=== PATIENT | male | born 1960 | race African-American/Black ===

== ENCOUNTER 2021-08-02 17:04 | Inpatient (IN) | payer OTHER ==
[2021-08-02] MEDS ORDERED: MAG HYDROX/AL HYDROX/SIMETH 30 ML UNIT-DOSE CUP PO PRN (19:22)
[2021-08-02] MEDS ORDERED: ONDANSETRON *ODT* 4 MG TABLET SL PRN (19:22)
[2021-08-02] MEDS ORDERED: BENZOCAINE/MENTHOL (CHLORASEPTIC ) LOZENGE MM PRN (19:22)
[2021-08-02] MEDS ORDERED: MAGNESIUM HYDROX 2400MG/30ML ORAL SUSPENSION 30 ML CUP PO PRN (19:22)
[2021-08-02] MEDS ORDERED: MAGNESIUM CITRATE 300 ML BOTTLE PO PRN (19:22)
[2021-08-02] MEDS ORDERED: DICYCLOMINE HCL 10 MG CAPSULE PO PRN (19:22)
[2021-08-02] MEDS ORDERED: IBUPROFEN 400 MG TABLET (FP) PO PRN (19:22)
[2021-08-02] MEDS ORDERED: BISMUTH SUBSALICYLATE 524 MG/30 ML PO PRN (19:22)
[2021-08-02] MEDS ORDERED: LOPERAMIDE HCL 2 MG CAPSULE PO PRN (19:22)
[2021-08-02] MEDS ORDERED: ACETAMINOPHEN 325 MG TABLET (FP) PO PRN (19:22)
[2021-08-02] MEDS ORDERED: NICOTINE 10 MG CARTRIDGE (INHALER) IH PRN (19:22)
[2021-08-02] MEDS ORDERED: cloNIDine HCL 0.1 MG TABLET PO PRN (19:39)
[2021-08-02] MEDS ORDERED: LORazepam 1 MG TABLET PO PRN (19:39)
[2021-08-02] MEDS ORDERED: methaDONE HCL 10 MG TABLET (FOR DETOX USE ONLY) PO ONE (19:39)
[2021-08-02 19:57] VITALS: BMI 22.4
[2021-08-02] MEDS ORDERED: hydrOXYzine PAMOATE 25 MG CAPSULE (FP) PO SCH (22:00)
[2021-08-02] MEDS: METHOCARBAMOL 500 MG TABLET PO PRN (22:54)
[2021-08-02] MEDS: THIAMINE HCL 100 MG TABLET (FP) PO SCH (22:54)
[2021-08-02] MEDS: LORazepam 2 MG TABLET PO SCH (22:54)
[2021-08-02] MEDS: MELATONIN 5 MG TABLETS PO SCH (22:55)
[2021-08-03] MEDS: LORazepam 2 MG TABLET PO SCH ×4 (06:48→23:05)
[2021-08-03] MEDS ORDERED: methaDONE HCL 10 MG TABLET (FOR DETOX USE ONLY) ONE (10:17)
[2021-08-03] MEDS: PRENATAL VITAMINS W/ FOLIC ACID TABLET (FP) PO SCH (11:16)
[2021-08-03] MEDS: METHOCARBAMOL 500 MG TABLET PO PRN (23:04)
[2021-08-03] MEDS: THIAMINE HCL 100 MG TABLET (FP) PO SCH (23:05)
[2021-08-03] MEDS: MELATONIN 5 MG TABLETS PO SCH (23:05)
[2021-08-04] MEDS: LORazepam 1 MG TABLET PO SCH ×4 (05:50→22:50)
[2021-08-04] MEDS ORDERED: methaDONE HCL 10 MG TABLET (FOR DETOX USE ONLY) PO ONE (10:00)
[2021-08-04] MEDS: PRENATAL VITAMINS W/ FOLIC ACID TABLET (FP) PO SCH (10:35)
[2021-08-04] MEDS: IBUPROFEN 600 MG TABLET (FP) PO PRN (17:17)
[2021-08-04] MEDS ORDERED: NICOTINE POLACRILEX 4 MG GUM BUC PRN (19:38)
[2021-08-04] MEDS: ACETAMINOPHEN 325 MG TABLET (FP) PO PRN (22:50)
[2021-08-04] MEDS: THIAMINE HCL 100 MG TABLET (FP) PO SCH (22:50)
[2021-08-04] MEDS: METHOCARBAMOL 500 MG TABLET PO PRN (22:50)
[2021-08-04] MEDS: MELATONIN 5 MG TABLETS PO SCH (22:50)
[2021-08-05] MEDS ORDERED: LORazepam 0.5 MG TABLET PO PRN
[2021-08-05] MEDS: LORazepam 0.5 MG TABLET PO SCH ×4 (06:16→22:57)
[2021-08-05] MEDS: METHOCARBAMOL 500 MG TABLET PO PRN (06:17)
[2021-08-05] MEDS ORDERED: methaDONE HCL 10 MG TABLET (FOR DETOX USE ONLY) ONE (09:58)
[2021-08-05] MEDS: PRENATAL VITAMINS W/ FOLIC ACID TABLET (FP) PO SCH (10:18)
[2021-08-05] MEDS: NICOTINE 10 MG CARTRIDGE (INHALER) IH SCH (15:58)
[2021-08-05] MEDS: IBUPROFEN 600 MG TABLET (FP) PO PRN (18:45)
[2021-08-05] MEDS: MELATONIN 5 MG TABLETS PO SCH (22:57)
[2021-08-05] MEDS: THIAMINE HCL 100 MG TABLET (FP) PO SCH (22:57)
[2021-08-06] MEDS: ACETAMINOPHEN 325 MG TABLET (FP) PO PRN (00:52)
[2021-08-06] MEDS ORDERED: LORazepam 0.5 MG TABLET PO ONE (05:00)
[2021-08-06] MEDS: METHOCARBAMOL 500 MG TABLET PO PRN (06:15)
[2021-08-06] MEDS: IBUPROFEN 600 MG TABLET (FP) PO PRN (06:15)
[2021-08-06 09:30] VITALS: TEMP 97.3
[2021-08-06] MEDS ORDERED: methaDONE HCL 10 MG TABLET (FOR DETOX USE ONLY) PO ONE (10:00)
[2021-08-06 10:09] LABS: CALCIUM 8.4 mg/dL (8.5-10.1)
[2021-08-06 10:10] LABS: ALBUMIN 2.6 g/dl (3.4-5.0); BLOOD UREA NITROGEN 8.2 mg/dL (7-18)
[2021-08-06 10:13] LABS: CREATININE 0.5 mg/dL (0.55-1.3)
[2021-08-06 10:14] LABS: TOT PROT 6.4 g/dl (6.4-8.2)
[2021-08-06 10:15] LABS: BILIRUBIN,TOTAL 0.3 mg/dL (0.2-1)
[2021-08-06] MEDS: PRENATAL VITAMINS W/ FOLIC ACID TABLET (FP) PO SCH (10:33)
[2021-08-06] MEDS: NICOTINE 10 MG CARTRIDGE (INHALER) IH SCH (11:09)
[2021-08-06 13:06] VITALS: BP 110/55; PULSE 98
[2021-08-06] MEDS ORDERED: SODIUM POLYSTYRENE SULFONATE 15 GM/60 ML BOTTLE PO ONE (14:09)
== END 2021-08-06 14:10 | disposition home or self-care (01) | DRG 773 ==
LOC: YASAS 17:04 → Y3N 18:56 → UNDOADMIN 18:56
PROVIDERS: ADMIT Allergy & Immunology; ATTEND Surgery
PROC: HZ2ZZZZ Detoxification Services for Substance Abuse Treatment (ICD-10-PCS; principal; 2021-08-02)
DX: F11.23 Opioid dependence with withdrawal (principal); F10.230 Alcohol dependence with withdrawal, uncomplicated; F14.20 Cocaine dependence, uncomplicated; F17.213 Nicotine dependence, cigarettes, with withdrawal; Z88.0 Allergy status to penicillin
CPT/HCPCS: 36415; 80053; 86593; 86780; 93005; 93010; C9803-CS; J0735; U0003; U0005

== ENCOUNTER 2022-01-21 11:36 | Inpatient (IN) | payer OTHER ==
[2022-01-21 12:57] VITALS: BMI 21.5
[2022-01-21] MEDS ORDERED: MAG HYDROX/AL HYDROX/SIMETH 30 ML UNIT-DOSE CUP PO PRN (16:13)
[2022-01-21] MEDS ORDERED: BISMUTH SUBSALICYLATE 524 MG/30 ML PO PRN (16:13)
[2022-01-21] MEDS ORDERED: POLYETHYLENE GLYCOL (HEALTHYLAX) 3350 17 GM PACKET PO PRN (16:13)
[2022-01-21] MEDS ORDERED: METHOCARBAMOL 500 MG TABLET PO PRN (16:13)
[2022-01-21] MEDS ORDERED: cloNIDine HCL 0.1 MG TABLET PO PRN (16:13)
[2022-01-21] MEDS ORDERED: MAGNESIUM HYDROX 2400MG/30ML ORAL SUSPENSION 30 ML CUP PO PRN (16:13)
[2022-01-21] MEDS ORDERED: BENZOCAINE/MENTHOL (CHLORASEPTIC ) LOZENGE MM PRN (16:13)
[2022-01-21] MEDS ORDERED: LOPERAMIDE HCL 2 MG CAPSULE PO PRN (16:13)
[2022-01-21] MEDS ORDERED: hydrOXYzine PAMOATE 25 MG CAPSULE (FP) PO PRN (16:13)
[2022-01-21] MEDS ORDERED: DICYCLOMINE HCL 10 MG CAPSULE PO PRN (16:13)
[2022-01-21] MEDS ORDERED: IBUPROFEN 400 MG TABLET (FP) PO PRN (16:13)
[2022-01-21] MEDS ORDERED: ONDANSETRON *ODT* 4 MG TABLET SL PRN (16:13)
[2022-01-21] MEDS ORDERED: IBUPROFEN 600 MG TABLET (FP) PO PRN (16:13)
[2022-01-21] MEDS ORDERED: NICOTINE 10 MG CARTRIDGE (INHALER) IH PRN (16:13)
[2022-01-21] MEDS ORDERED: diazePAM 5 MG TABLET PO PRN (16:13)
[2022-01-21] MEDS ORDERED: ACETAMINOPHEN 325 MG TABLET (FP) PO PRN ×2 (16:13)
[2022-01-21] MEDS ORDERED: NALOXONE HCL (KLOXXADO) 8 MG SPRAY NS PRN (16:13)
[2022-01-21] MEDS ORDERED: methaDONE HCL 10 MG TABLET (FOR DETOX USE ONLY) PO ONE (16:30)
[2022-01-21] MEDS ORDERED: methaDONE HCL 10 MG TABLET (FOR DETOX USE ONLY) ONE (16:30)
[2022-01-21] MEDS: diazePAM 5 MG TABLET PO SCH ×2 (16:39→22:31)
[2022-01-21] MEDS: THIAMINE HCL 100 MG TABLET (FP) PO SCH (22:31)
[2022-01-21] MEDS: MELATONIN 5 MG TABLETS PO SCH (22:31)
[2022-01-22] MEDS: diazePAM 5 MG TABLET PO SCH ×4 (05:59→23:05)
[2022-01-22] MEDS: PRENATAL VITAMINS W/ FOLIC ACID TABLET (FP) PO SCH (10:47)
[2022-01-22 12:31] LABS: ALBUMIN 2.4 g/dl (3.4-5.0); BLOOD UREA NITROGEN 4.6 mg/dL (7-18); CALCIUM 8.7 mg/dL (8.5-10.1); HEMATOCRIT 35.1 % (35.4-49); HEMOGLOBIN 11.1 GM/dL (11.7-16.9); MCH 26.7 pg (25.7-33.7); MCHC 31.5 g/dl (32.0-35.9); MEAN CELL VOLUME 84.9 fl (80-96); MEAN PLT VOLUME 8.2 fl (7.5-11.1); PLATELET COUNT 457 10^3/uL (134-434); RBC 4.14 M/mm3 (4.00-5.60); RDW 16.7 % (11.9-15.9); WHITE BLOOD COUNT 7.4 K/mm3 (4.0-10.0)
[2022-01-22 12:34] LABS: CREATININE 0.6 mg/dL (0.55-1.3)
[2022-01-22 12:36] LABS: BILIRUBIN,TOTAL 0.4 mg/dL (0.2-1)
[2022-01-22] MEDS: THIAMINE HCL 100 MG TABLET (FP) PO SCH (23:05)
[2022-01-22] MEDS: MELATONIN 5 MG TABLETS PO SCH (23:05)
[2022-01-23] MEDS: diazePAM 5 MG TABLET PO SCH ×3 (05:41→21:16)
[2022-01-23] MEDS ORDERED: methaDONE HCL 10 MG TABLET (FOR DETOX USE ONLY) PO ONE (10:00)
[2022-01-23] MEDS: PRENATAL VITAMINS W/ FOLIC ACID TABLET (FP) PO SCH (10:09)
[2022-01-23] MEDS: THIAMINE HCL 100 MG TABLET (FP) PO SCH (21:16)
[2022-01-23] MEDS: MELATONIN 5 MG TABLETS PO SCH (21:17)
[2022-01-24] MEDS: diazePAM 5 MG TABLET PO SCH ×2 (05:35→18:10)
[2022-01-24] MEDS: PRENATAL VITAMINS W/ FOLIC ACID TABLET (FP) PO SCH (10:25)
[2022-01-24] MEDS: THIAMINE HCL 100 MG TABLET (FP) PO SCH (22:33)
[2022-01-24] MEDS: MELATONIN 5 MG TABLETS PO SCH (22:33)
[2022-01-25] MEDS ORDERED: diazePAM 5 MG TABLET PO ONE (06:00)
[2022-01-25 09:06] VITALS: BP 88/50; PULSE 87; RESP 18; TEMP 97.9
[2022-01-25] MEDS ORDERED: methaDONE HCL 10 MG TABLET (FOR DETOX USE ONLY) PO ONE (10:00)
[2022-01-25] MEDS: PRENATAL VITAMINS W/ FOLIC ACID TABLET (FP) PO SCH (10:03)
== END 2022-01-25 11:02 | disposition home or self-care (01) | DRG 773 ==
LOC: SUATTDRO 11:36 → YASAS 11:36 → Y3N 17:37
PROVIDERS: ADMIT Allergy & Immunology; ATTEND Surgery
PROC: HZ2ZZZZ Detoxification Services for Substance Abuse Treatment (ICD-10-PCS; principal; 2022-01-21)
DX: F11.23 Opioid dependence with withdrawal (principal); F10.230 Alcohol dependence with withdrawal, uncomplicated; F14.20 Cocaine dependence, uncomplicated; F17.213 Nicotine dependence, cigarettes, with withdrawal; F32.A Depression, unspecified; R77.0 Abnormality of albumin; G47.00 Insomnia, unspecified; R63.4 Abnormal weight loss; Z68.21 Body mass index [BMI] 21.0-21.9, adult; D64.9 Anemia, unspecified; D75.839 Thrombocytosis, unspecified; Z86.19 Personal history of other infectious and parasitic diseases; Z86.11 Personal history of tuberculosis; Z87.828 Personal history of other (healed) physical injury and trauma; Z88.0 Allergy status to penicillin
CPT/HCPCS: 36415; 71046-TC-FY; 80053; 85027; 86593; 86780; C9803-CS; U0003; U0005